=== PATIENT | female | born 1955 | race Caucasian/White ===

== ENCOUNTER 2019-05-26 12:26 | Emergency (ER) | payer OTHER ==
[~2019-05-26] VITALS: Ht 160 cm; Wt 68.0 kg
--- NOTE | 2019-05-26 12:44 | NUR ---
pt ambulated with steady gait, c/o dry cough x4 months with worsening symptoms. Speech clear able to make needs known. No neuro deficits noted. A&O x3. Breathing even with bouts of coughing noted. No cardiovascular deficits noted, all pulses palpable. Cap refill <3 sec. Denies any GI / symptoms. fall precautions implemented per protocol. Bed low, siderails up x2, call light within reach.
--- NOTE | 2019-05-26 12:51 | NUR ---
ER MD at bedside for evaluation
--- NOTE | 2019-05-26 13:29 | NUR ---
Patient discharged to home in stable conditon. steady gait noted. Written and verbal after care instructions given. Patient verbalizes understanding of instructions.
[2019-05-26 13:33] VITALS: BP 126/80
== END 2019-05-26 13:29 | disposition home or self-care (01) ==
LOC: ER 12:26
DX: J40 Bronchitis, not specified as acute or chronic (principal); E78.5 Hyperlipidemia, unspecified
CPT/HCPCS: 71045; 93005; A4663

== ENCOUNTER 2020-10-04 10:00 | Emergency (ER) | payer OTHER ==
[~2020-10-04] VITALS: Ht 160 cm; Wt 64.9 kg
[2020-10-04 10:19] LABS: *BILIRUBIN,URIN NEGATIVE (NEGATIVE); *BLOOD, URINE NEGATIVE (NEGATIVE); *CLARITY,URINE SLIGHTLY CLOUDY (CLEAR); *COLOR,URINE YELLOW (YELLOW); *KETONES,URINE NEGATIVE (NEGATIVE); *UROBILINOGEN,URINE 0.2 E.U./dl (NORMAL); LEUKOCYTE ESTERASE ,URINE 1+ (NEGATIVE); NITRITE, URINE NEGATIVE (NEGATIVE); UGLUCOSE NEGATIVE (NEGATIVE)
[2020-10-04] MEDS ORDERED: ONDANSETRON 4 MG/2 ML VIAL IV ONE (11:15)
[2020-10-04] MEDS ORDERED: MECLIZINE HCL 25 MG TABLET PO ONE (11:15)
[2020-10-04] MEDS ORDERED: IV NORMAL SALINE 1000 ML BAG IV ONE (11:15)
[2020-10-04] MEDS ORDERED: CEFTRIAXONE 1 G in IV DEXTROSE 5% 50 ML IV ONE (11:15)
[2020-10-04 11:42] LABS: BASOPHILS % (AUTO) 0.3 % (0.0-2.0); EOSINOPHILS # (AUTO) 0.2 K/uL (0.0-0.7); EOSINOPHILS % (AUTO) 3.6 % (0.0-7.0); HEMATOCRIT 35.8 % (31.2-41.9); HEMOGLOBIN 12.1 g/dL (10.9-14.3); LYMPHOCYTES # (AUTO) 1.4 K/uL (20.0-40.0); LYMPHOCYTES % (AUTO) 20.2 % (20.5-51.5); MEAN CORPUSCULAR HEMOGLOBIN 28.5 uug (24.7-32.8); MEAN CORPUSCULAR HGB CONC 34 g/dL (32.3-35.6); MEAN CORPUSCULAR VOLUME 84.6 fL (75.5-95.3); MONOCYTES # (AUTO) 0.3 K/uL (2.0-10.0); NEUTROPHILS # (AUTO) 4.8 K/uL (1.8-8.9); NEUTROPHILS % (AUTO) 70.9 % (38.5-71.5); PLATELET COUNT (AUTO) 233 K/uL (179-408); RED BLOOD CELL COUNT(AUTO) 4.23 MIL/uL (3.63-4.92); WHITE BLOOD COUNT (AUTO) 6.7 K/uL (3.8-11.8)
[2020-10-04] MEDS ORDERED: MECLIZINE HCL 25 MG TABLET ONE (11:48)
[2020-10-04] MEDS ORDERED: ONDANSETRON 4 MG/2 ML VIAL ONE (11:48)
[2020-10-04] MEDS ORDERED: CEFTRIAXONE /D5W 50ML IVPB **ER PYXIS IV ONE (11:48)
[2020-10-04 11:58] LABS: BILIRUBIN,DIRECT 0.1 mg/dL (0.0-0.2); BILIRUBIN,TOTAL 0.3 mg/dL (0.2-1.0); POTASSIUM 3.8 mmol/L (3.5-5.1); TOTAL PROTEIN, SERUM 7.2 g/dL (6.4-8.2)
[2020-10-04] MEDS ORDERED: MECL-159 PO (12:44)
[2020-10-04] MEDS ORDERED: CEPH500C2 PO (12:44)
--- NOTE | 2020-10-04 12:55 | NUR ---
Patient discharged to home in stable condition. Written and verbal after care instructions given. Patient verbalizes understanding of instructions. Stressed follow up or return to ER for worsening s/s.PT WALKS IN STEADY GAIT. PT DENEIS ANY NAUSEA/DIZZINESS/PAIN AT THIS TIME. PT SAYS FEELS MUCH BETTER.
[2020-10-04 12:56] VITALS: BP 128/76
[2020-10-04 13:14] LABS: BACTERIA,URINE NONE SEEN /HPF (NONE SEEN); RBC,URINE NONE SEEN /HPF (0-3); SQUAMOUS EPITHELIAL CELL,UR FEW /HPF (NONE SEEN); WBC,URINE 0-3 /HPF (0-3)
== END 2020-10-04 12:56 | disposition home or self-care (01) ==
LOC: ER 10:02
DX: N12 Tubulo-interstitial nephritis, not specified as acute or chronic (principal); R42 Dizziness and giddiness; E78.5 Hyperlipidemia, unspecified; Z79.899 Other long term (current) drug therapy; I10 Essential (primary) hypertension; E03.9 Hypothyroidism, unspecified; R00.0 Tachycardia, unspecified
CPT/HCPCS: 36415; 70450; 80048; 80076; 81001; 83605; 84484; 85025; 85730; 87040 ×2; 87086; 93005; 96365; 96375; 99285; J0696; J2405; 70030-TC; A4663; J7030; J8597

== ENCOUNTER 2020-12-31 11:17 | Inpatient (IN) | payer OTHER ==
[~2020-12-31] VITALS: Ht 165.1 cm; Wt 63.5 kg
[~2020-12-31 11:17] MED LIST: CEPH500C2 PO; MECL-159 PO
--- NOTE | 2020-12-31 11:34 | NUR ---
65 yrs c/o headack for 5 day and genralized body pain dineses hx fever or coughing walking with no weekness
[2020-12-31 12:54] LABS: BASOPHILS % (AUTO) 0.5 % (0.0-2.0); EOSINOPHILS % (AUTO) 0.3 % (0.0-7.0); HEMATOCRIT 36.1 % (31.2-41.9); HEMOGLOBIN 12.1 g/dL (10.9-14.3); LYMPHOCYTES # (AUTO) 0.9 K/uL (20.0-40.0); LYMPHOCYTES % (AUTO) 24.6 % (20.5-51.5); MEAN CORPUSCULAR HEMOGLOBIN 27.8 uug (24.7-32.8); MEAN CORPUSCULAR HGB CONC 33 g/dL (32.3-35.6); MEAN CORPUSCULAR VOLUME 83.4 fL (75.5-95.3); MONOCYTES # (AUTO) 0.2 K/uL (2.0-10.0); MONOCYTES % (AUTO) 5.4 % (0.0-11.0); NEUTROPHILS # (AUTO) 2.6 K/uL (1.8-8.9); NEUTROPHILS % (AUTO) 69.2 % (38.5-71.5); PLATELET COUNT (AUTO) 197 K/uL (179-408); RED BLOOD CELL COUNT(AUTO) 4.34 MIL/uL (3.63-4.92); WHITE BLOOD COUNT (AUTO) 3.8 K/uL (3.8-11.8)
--- NOTE | 2020-12-31 13:00 | NUR ---
c/o genralized weekness inserted ango cath # [address] on [address] ac ivf ns infused and patent ua sent to [facility]
--- NOTE | 2020-12-31 13:03 | NUR ---
received COVID result from Aide from lab: Result - covid (+)
[2020-12-31 13:04] LABS: CREATININE 1.1 mg/dL (0.6-1.3); POTASSIUM 3.9 mmol/L (3.5-5.1)
[2020-12-31 13:19] LABS: BILIRUBIN,TOTAL 0.3 mg/dL (0.2-1.0); TOTAL PROTEIN, SERUM 7.3 g/dL (6.4-8.2)
[2020-12-31 13:30] LABS: *BILIRUBIN,URIN NEGATIVE (NEGATIVE); *BLOOD, URINE NEGATIVE (NEGATIVE); *CLARITY,URINE CLEAR (CLEAR); *COLOR,URINE YELLOW (YELLOW); *KETONES,URINE NEGATIVE (NEGATIVE); *UROBILINOGEN,URINE 0.2 E.U./dl (NORMAL); LEUKOCYTE ESTERASE ,URINE NEGATIVE (NEGATIVE); NITRITE, URINE NEGATIVE (NEGATIVE); UGLUCOSE NEGATIVE (NEGATIVE)
[2020-12-31] MEDS ORDERED: SIMV-49 PO (14:14)
[2020-12-31] MEDS ORDERED: LEVO50TA8 PO (14:14)
[2020-12-31] MEDS ORDERED: VALS80TA2 PO (14:14)
[2020-12-31 14:37] LABS: BACTERIA,URINE NONE SEEN /HPF (NONE SEEN); MUCUS,URINE FEW /LPF (0-FEW); RBC,URINE 0-3 /HPF (0-3); SQUAMOUS EPITHELIAL CELL,UR FEW /HPF (NONE SEEN); WBC,URINE 0-3 /HPF (0-3)
--- NOTE | 2020-12-31 15:00 | NUR ---
PT REFUSED TO BE ADMIT INPT QREQUSTEXD TO SIGN AMA
--- NOTE | 2020-12-31 16:00 | NUR ---
RESTING AND ASLEEP NO COMPLAIN AT THIS TIME
--- NOTE | 2020-12-31 17:17 | NUR ---
VS STABLE NO NICK
--- NOTE | 2020-12-31 18:35 | NUR ---
DINESES SOB PLAN TO BE ADMITE INPT O2 SAT 98% ON ROOM AIR
--- NOTE | 2020-12-31 19:00 | NUR ---
HAND OFF TO JEN FONTAINE
--- NOTE | 2020-12-31 20:14 | NUR ---
Patient being taken down for CT of head.
--- NOTE | 2020-12-31 20:31 | NUR ---
Pt came back from CT, stable condition.
--- NOTE | 2020-12-31 20:51 | NUR ---
GAVE REPORT TO TELE NURSE
[2020-12-31 22:00] VITALS: BP 123/91
[2020-12-31] MEDS ORDERED: ALBUTEROL SULFATE 8 GM HFA.AER.AD IH PRN (22:15)
[2020-12-31] MEDS: ENOXAPARIN SODIUM 40 MG/0.4 ML DISP.SYRIN SQ SCH (22:59)
[2020-12-31] MEDS: ACETAMINOPHEN 325 MG TABLET PO PRN (22:59)
[2021-01-01 00:10] VITALS: BP 102/59
[2021-01-01 04:30] VITALS: BP 103/66
[2021-01-01 06:10] LABS: BASOPHILS % (AUTO) 0.3 % (0.0-2.0); EOSINOPHILS % (AUTO) 0.3 % (0.0-7.0); HEMATOCRIT 33.8 % (31.2-41.9); HEMOGLOBIN 11.3 g/dL (10.9-14.3); LYMPHOCYTES # (AUTO) 1.4 K/uL (20.0-40.0); LYMPHOCYTES % (AUTO) 32.6 % (20.5-51.5); MEAN CORPUSCULAR HEMOGLOBIN 27.6 uug (24.7-32.8); MEAN CORPUSCULAR HGB CONC 33 g/dL (32.3-35.6); MONOCYTES # (AUTO) 0.2 K/uL (2.0-10.0); MONOCYTES % (AUTO) 5.2 % (0.0-11.0); NEUTROPHILS # (AUTO) 2.6 K/uL (1.8-8.9); NEUTROPHILS % (AUTO) 61.6 % (38.5-71.5); PLATELET COUNT (AUTO) 179 K/uL (179-408); RED BLOOD CELL COUNT(AUTO) 4.08 MIL/uL (3.63-4.92); WHITE BLOOD COUNT (AUTO) 4.2 K/uL (3.8-11.8)
[2021-01-01 06:33] LABS: BILIRUBIN,TOTAL 0.3 mg/dL (0.2-1.0); CREATININE 0.9 mg/dL (0.6-1.3); POTASSIUM 3.9 mmol/L (3.5-5.1); TOTAL PROTEIN, SERUM 6.5 g/dL (6.4-8.2)
--- NOTE | 2021-01-01 06:41 | NUR ---
Pt admitted to Tele 12/31/20 at 2100H. Denies SOB at this time. Lung sounds clear. Pertinent assessments complete. All belongings accounted for. Pt able to ambulate without assistance with a steady gait. Slept throughout the night and denies any discomfort at this time. Bed is locked and in lowest position, call light within reach. No other issues or concerns at this time, will endorse to oncoming nurse.
[2021-01-01 08:46] VITALS: BP 111/66
[2021-01-01 11:56] VITALS: BP 106/69
[2021-01-01] MEDS: ONDANSETRON 4 MG/2 ML VIAL IV PRN (12:25)
[2021-01-01] MEDS: ACETAMINOPHEN 325 MG TABLET PO PRN (15:03)
[2021-01-01 15:34] VITALS: BP 106/69
--- NOTE | 2021-01-01 16:17 | NUR ---
Pt A&Ox4, able to verbalize needs. No acute distress, no SOB noted. VSS. O2 saturation 98% on RA. Pt afebrile. R AC 20 g PIV patent and intact. Pt reported nausea this afternoon, PRN Zofran administered per order, per pt effective. Pt denies emesis. Pt requested Tylenol for PECK pain, PRN Tylenol administered per order, per pt, "it helped". Dr. Patrick and Dr. Bro Saleh at bedside today, reports given. Call light and belongings within reach. Safety ensured. Continue plan of care.
--- NOTE | 2021-01-01 19:05 | NUR ---
Pt in no acute distress, no SOB, denies pain/discomfort. Pt reported no BM for 5 days, Dr. Crabtree made aware, will endorse to night baker nurse. Safety maintained. Call light in reach.
[2021-01-01 20:18] VITALS: BP 99/60
--- NOTE | 2021-01-01 20:30 | NUR ---
Received patient resting in bed, AAOx4. No s/s of acute distress noted at this time. On RA denies SOB, O2 @ 95%. C/o abdominal discomfort and constipation. Notified on-call provider, awaiting response. Right AC IV patent and intact. Safety measures and isolation precautions in place and observed.
[2021-01-01] MEDS: ENOXAPARIN SODIUM 40 MG/0.4 ML DISP.SYRIN SQ SCH (21:00)
--- NOTE | 2021-01-01 21:59 | NUR ---
Patient c/o constipation. Notified Isaiah Amador DNP, new orders for PRN Miralax one time. Will administer as follow and continue to monitor patient for s/s of constipation.
[2021-01-01] MEDS ORDERED: MIRALAX 17 GM POWD.PACK PO ONE (22:00)
[2021-01-02 00:06] VITALS: BP 101/59
[2021-01-02] MEDS ORDERED: BISACODYL 10 MG SUPP.RECT RC PRN (01:30)
[2021-01-02 04:18] VITALS: BP 104/65
[2021-01-02] MEDS: ACETAMINOPHEN 325 MG TABLET PO PRN (04:54)
[2021-01-02] MEDS: ONDANSETRON 4 MG/2 ML VIAL IV PRN ×2 (04:54→12:52)
--- NOTE | 2021-01-02 06:49 | NUR ---
Patient resting in bed. No s/s of acute distress. On RA denies SOB. C/o dizziness and lightheadedness when ambulating briefly. Emesis episode x1, patient stated "It was mostly mucus", administered Zofran per orders, nausea and vomiting resolved. C/o constipation unable to have a bowel movement, administered miralax and Dulcolax suppository per order, per patient they had a small bowel movement this morning. Temp. range 98.6-99.5. Tylenol and cooling measures provided. skatesman in place, sinus rhythm. Safety measures and Isolation precautions remain intact and observed.
[2021-01-02 08:26] VITALS: BP 98/60
[2021-01-02 11:49] VITALS: BP 91/59
[2021-01-02] MEDS ORDERED: SENN1TAB77 PO (12:40)
[2021-01-02 14:31] VITALS: BP 115/63
--- NOTE | 2021-01-02 19:20 | NUR ---
Discharge instructions provided to the patient with verbalized understanding. Discharge papers signed by and given to the patient. All belongings well accounted for. Patient remains alert, oriented x 4, not in any form of distress, on room air and ambulatory. She denies any pain or discomfort at this time. Needs attended to. Assisted patient to the lobby via wheelchair. Discharged patient to home with daughter, picked up by her son Said via private car.
== END 2021-01-02 19:30 | disposition home or self-care (01) | DRG 137 ==
LOC: ER 11:17 → TELE3 20:35
PROVIDERS: ADMIT Hospitalist
DX: U07.1 COVID-19 (principal); E03.9 Hypothyroidism, unspecified; E78.5 Hyperlipidemia, unspecified; E87.6 Hypokalemia; I10 Essential (primary) hypertension; K59.00 Constipation, unspecified; Z87.891 Personal history of nicotine dependence; R53.1 Weakness; R51.9 Headache, unspecified; Z79.890 Hormone replacement therapy
CPT/HCPCS: 36415; 70030-TC; 70450; 71045; 83605; 83615; 84443; 85025; 85610; 85730; 86140; 87040; 87086; 93005; A4663; G0378; J1650; J2405; J3535; J7030